=== PATIENT | male | born 1985 | race Caucasian/White ===

== ENCOUNTER 2017-01-29 09:35 | Emergency (ER) | payer BC, OTHER ==
[2017-01-29 09:39] VITALS: TEMP 98.1; BMI 22.8
--- NOTE | 2017-01-29 09:48 | PDOC ---
Attending Attestation - Resident Resident Name: Yann Lucas - HPI HPI: 01/29/17 12:11 Pt presents to the ED complaining of a three day history of hives and a one day history of facial swelling. Denies other complaints. 01/29/17 12:14 - Physicial Exam PE: 01/29/17 12:14 Exam is consistent with allergic urticaria. - Medical Decision Making 01/29/17 12:14 Will treat with benadryl and steroids and reassess.
[2017-01-29] MEDS ORDERED: methylPREDNISolone NA SUCC 125 MG/2 ML VIAL IVPB ONE (10:04)
--- NOTE | 2017-01-29 10:04 | PDOC ---
History of Present Illness - General Chief Complaint: Allergic Reaction Stated Complaint: ALLERGIC RXN Time Seen by Provider: 01/29/17 09:43 - History of Present Illness Initial Comments: 01/29/17 12:05 Mr. Wheatley is a 31 yo male with no significant past medical history who presents to the emergency department with a 2 day history of hives and itching. He reports that as of this morning his face began to swell and that he had lip swelling as well. He also reports hives to his chest/back. The symptoms started after a meal of oysters, sushi, and pistachios. The patient denies chest pain, shortness of breath, headache and dizziness. Denies fever, chills, nausea, vomit, diarrhea and constipation. Denies dysuria, frequency, urgency and hematuria. Allergies: No known Past surgical history: None Social history: Occasional hookah use PMD - Unknown 01/29/17 12:06 Past History - Past Medical History Allergies/Adverse Reactions: Allergies Allergy/AdvReac Type Severity Reaction Status Date / Time No Known Allergies Allergy Verified 01/29/17 09:36 Home Medications: Ambulatory Orders Epinephrine (Epi-Pen 0.3MG) [Epipen 0.3MG -] 0.3 mg IM ASDIR #1 pens 01/29/17 Prednisone [Prednisone 50 MG TABLETS] 50 mg PO DAILY #4 tablet 01/29/17 - Psycho/Social/Smoking Cessation Hx Anxiety: No Suicidal Ideation: No Smoking History: Never smoked Have you smoked in the past 12 months: No Information on smoking cessation initiated: No Hx Alcohol Use: No Drug/Substance Use Hx: No Substance Use Type: None Review of Systems - Review of Systems Comments:: 01/29/17 12:05 GENERAL/CONSTITUTIONAL: No fever or chills. No weakness. HEAD, EYES, EARS, NOSE AND THROAT: No change in vision. No ear pain or discharge. No sore throat. CARDIOVASCULAR: No chest pain or shortness of breath RESPIRATORY: No cough, wheezing, or hemoptysis. GASTROINTESTINAL: No nausea, vomiting, diarrhea or constipation. GENITOURINARY: No dysuria, frequency, or change in urination. MUSCULOSKELETAL: No joint or muscle swelling or pain. No neck or back pain. SKIN: No rash NEUROLOGIC: No headache, vertigo, loss of consciousness, or change in strength/ sensation. ENDOCRINE: No increased thirst. No abnormal weight change HEMATOLOGIC/LYMPHATIC: No anemia, easy bleeding, or history of blood clots. ALLERGIC/IMMUNOLOGIC: Various hives to chest, back, hands, face. Also swelling of lips, tongue, and hands. *Physical Exam - Vital Signs Last Vital Signs Temp Pulse Resp BP Pulse Ox 98.1 F 78 18 126/77 100 01/29/17 09:36 01/29/17 09:36 01/29/17 09:36 01/29/17 09:36 01/29/17 09:36 - Physical Exam Comments: 01/29/17 12:05 GENERAL: Awake, alert, and fully oriented, in no acute distress HEAD: No signs of trauma, normocephalic, atraumatic EYES: +Some swelling around the orbit noted. PERRLA, EOMI, sclera anicteric, conjunctiva clear ENT: +Tongue appears swollen and lips are clearly enlarged. Auricles normal inspection, hearing grossly normal, nares patent, oropharynx clear without exudates. Moist mucosa NECK: Normal ROM, supple, no lymphadenopathy, JVD, or masses LUNGS: No distress, speaks full sentences, clear to auscultation bilaterally HEART: Regular rate and rhythm, normal S1 and S2, no murmurs, rubs or gallops, peripheral pulses normal and equal bilaterally. ABDOMEN: Soft, nontender, normoactive bowel sounds. No guarding, no rebound. No masses EXTREMITIES: Normal inspection, Normal range of motion, no edema. No clubbing or cyanosis. NEUROLOGICAL: Cranial nerves II through XII grossly intact. Normal speech, normal gait, no focal sensorimotor deficits SKIN: +Trunk and back hives noted, skin on hands appears swollen and stiff. Medical Decision Making - Medical Decision Making 01/29/17 12:11 Patient in no acute distress reporting for several day history of allergic reactions. Denies any difficulty breathing. Speech is mildly "thick" sounding. Patient given solumedrol 125 and IV benadryl 50 with visible relief at 2 hours. Will keep for at least 4 hours and ensure symptoms have alleviated. 01/29/17 14:29 Patient relieved, will d/c to home with instruction to f/u with investment analyst as soon as possible. Given 4 days of prednisone for 5 day total course as well as epipen. *DC/Admit/Observation/Transfer Diagnosis at time of Disposition: Allergic angioedema Qualifiers: Encounter type: initial encounter Qualified Code(s): T78.3XXA - Angioneurotic edema, initial encounter - Discharge Dispostion Disposition: TRANSFER ACUTE CARE/OTHER HOSP - Prescriptions Prescriptions: Epinephrine (Epi-Pen 0.3MG) [Epipen 0.3MG -] 0.3 mg IM ASDIR #1 pens Prednisone [Prednisone 50 MG TABLETS] 50 mg PO DAILY #4 tablet - Referrals Referrals: Fernando Smith MD [Primary Care Provider] - Noel Dupree MD [Staff Physician] - - Patient Instructions Printed Discharge Instructions: DI for General Allergic Reactions Additional Instructions: Please return if any additional symptoms of swelling, pain, or difficulty breathing. - Attestations Physician Attestion: 01/29/17 14:31 I, Dr. Yann Lucas, attest that this document has been prepared under my direction and personally reviewed by me in its entirety. I further attest, that it accurately reflects all work, treatment, procedures and medical decision -making performed by me.
[2017-01-29 14:48] VITALS: BP 118/70; PULSE 68
== END 2017-01-29 14:46 | disposition home or self-care (01) ==
LOC: JER 09:35
PROC: 3E033GC Introduction of Other Therapeutic Substance into Peripheral Vein, Percutaneous Approach (ICD-10-PCS; principal; 2017-01-29)
DX: T78.3XXA Angioneurotic edema, initial encounter (principal)
CPT/HCPCS: 99282-25